=== PATIENT | male | born 1990 | race Native Hawaiian/Other Pacific Islander ===

== ENCOUNTER 2016-11-27 12:13 | Emergency (ER) | payer SELFPAY ==
[~2016-11-27] VITALS: Ht 177.8 cm; Wt 100.0 kg
[~2016-11-27 12:13] MED LIST: Z.0.NO CURRENT MEDS
[2016-11-27 12:14] VITALS: BP 172/92; PULSE 92; RESP 14; TEMP 98.8; O2SAT 97
--- NOTE | 2016-11-27 12:30 | PD ---
Physical Exam Time Seen by Provider: 12:29 Narrative 26 y/o male here with RLQ pain for 5 days. Burning type of pain. Denies n/v/d, fevers. Vital signs reviewed. Seen at triage desk. Awaiting bed placement. Data Data Last Documented VS Vital Signs Date Time Temp Pulse Resp B/P Pulse Ox O2 Delivery O2 Flow Rate FiO2 11/27/16 12:14 98.8 92 14 172/92 97 MDM Medical Record Reviewed: Yes Supervised Visit with HARDIK: No Akshat Silva Nov 27, 2016 12:30
[2016-11-27 14:03] LABS: AUTOMATED NEUTROPHIL # 3.8 TH/MM3 (1.8-7.7); BASOPHIL # 0.1 TH/MM3 (0-0.2); BASOPHIL % 1.1 % (0.0-2.0); EOSINOPHIL # 0.4 TH/MM3 (0-0.4); EOSINOPHIL % 5.2 % (0.0-4.0); HEMO FLAGS DIFF FINAL; LYMPH % 35.9 % (9.0-44.0); LYMPHOCYTE # 2.8 TH/MM3 (1.0-4.8); MEAN CELL VOLUME 90.1 FL (80.0-100.0); MEAN CORPUSCULAR HEMOGLOBIN 29.7 PG (27.0-34.0); MEAN CORPUSCULAR HGB CONC 32.9 % (32.0-36.0); MONO % 8.4 % (0.0-8.0); NEUT % 49.4 % (16.0-70.0); PLATELET COUNT 202 TH/MM3 (150-450); RED BLOOD COUNT 5.11 MIL/MM3 (4.50-5.90); WHITE BLOOD COUNT 7.7 TH/MM3 (4.0-11.0)
[2016-11-27 14:16] LABS: BLOOD, URINE NEG (NEG); GLUCOSE,URINE NEG (NEG); KETONE, URINE NEG (NEG); NITRITE,URINE NEG (NEG); PH, URINE 7.5 (5.0-8.5); URINE COLOR LIGHT-YELLOW (YELLW/STRAW)
[2016-11-27 14:18] LABS: COMMENT (UR) CULT NOT INDICATED; CULTURE IF INDICATED CULT NOT INDICATED
[2016-11-27 14:21] LABS: ALT (GPT) 31 U/L (12-78); ANION GAP 5 MEQ/L (5-15); AST (GOT) 21 U/L (15-37); BICARBONATE 30.5 MEQ/L (21.0-32.0); BLOOD UREA NITROGEN 10 MG/DL (7-18); CHLORIDE 105 MEQ/L (98-107); GLOMERULAR FILTRATION RATE 91 ML/MIN (>89); POTASSIUM 4.2 MEQ/L (3.5-5.1); SODIUM (NA) 140 MEQ/L (136-145)
[2016-11-27 14:23] LABS: ALKALINE PHOSPHATASE 71 U/L (45-117); TOTAL BILIRUBIN ADULT 0.4 MG/DL (0.2-1.0)
--- NOTE | 2016-11-27 15:28 | PD ---
HPI Chief Complaint: GI Complaint Time Seen by Provider: 15:28 Travel History International Travel<30 days: No Contact w/Intl Traveler<30days: No Traveled to known affect area: No History of Present Illness HPI 26 YO male presents to the ED for evaluation of 5 day history RLQ abdominal pain. Onset at rest. Described as sudden and sharp 8/10 initially with "hot, burning pain" of 6/10 minimally. Radiates to the right flank. No alleviating or exacerbating factors reported. Patient denies fever, chills, decreased appetite, nausea, vomiting, changes in bowel habit, melena, hematochezia, dysuria, penile discharge. He can identify no acute injury. Patient states pain was worse today which prompted him to seek evaluation. Denies chronic health problems, takes no daily medications. NKDA. PFSH Social History Alcohol Use: Yes (OCCASIONAL) Tobacco Use: No Allergies-Medications (Allergen,Severity, Reaction): Coded Allergies: No Known Allergies (Verified , 11/27/16) Reported Meds & Prescriptions Reported Meds & Active Scripts Active No Active Prescriptions or Reported Medications Review of Systems Except as stated in HPI: all other systems reviewed are Neg Physical Exam Narrative GENERAL: Well-nourished, well-developed male in no acute distress. SKIN: Focused skin assessment warm/dry. HEAD: Normocephalic. EYES: No scleral icterus. No injection or drainage. NECK: Supple, trachea midline. No JVD or lymphadenopathy. CARDIOVASCULAR: Regular rate and rhythm without murmurs, gallops, or rubs. RESPIRATORY: Breath sounds equal bilaterally. No accessory muscle use. GASTROINTESTINAL: Abdomen soft, nondistended. Tender to deep palpation of the lateral RLQ. Active bowel sounds. MUSCULOSKELETAL: No cyanosis, or edema. BACK: Nontender without obvious deformity. No CVA tenderness. Data Data Last Documented VS Vital Signs Date Time Temp Pulse Resp B/P Pulse Ox O2 Delivery O2 Flow Rate FiO2 11/27/16 16:57 70 22 127/60 100 Room Air 11/27/16 12:14 98.8 Orders Complete Blood Count With Diff (11/27/16 12:31) Comprehensive Metabolic Panel (11/27/16 12:31) Lipase (11/27/16 12:31) Urinalysis - C+S If Indicated (11/27/16 12:31) ^ Insert Iv (11/27/16 15:45) Ct Abd/Pel W Iv Contrast(Rout) (11/27/16 ) Morphine Inj (Morphine Inj) (11/27/16 16:00) Iohexol 350 Inj (Omnipaque 350 Inj) (11/27/16 16:46) Labs Laboratory Tests Test 11/27/16 11/27/16 13:47 13:55 White Blood Count 7.7 TH/MM3 Red Blood Count 5.11 MIL/MM3 Hemoglobin 15.1 GM/DL Hematocrit 46.0 % Mean Corpuscular Volume 90.1 FL Mean Corpuscular Hemoglobin 29.7 PG Mean Corpuscular Hemoglobin 32.9 % Concent Red Cell Distribution Width 13.0 % Platelet Count 202 TH/MM3 Mean Platelet Volume 9.6 FL Neutrophils (%) (Auto) 49.4 % Lymphocytes (%) (Auto) 35.9 % Monocytes (%) (Auto) 8.4 % Eosinophils (%) (Auto) 5.2 % Basophils (%) (Auto) 1.1 % Neutrophils # (Auto) 3.8 TH/MM3 Lymphocytes # (Auto) 2.8 TH/MM3 Monocytes # (Auto) 0.6 TH/MM3 Eosinophils # (Auto) 0.4 TH/MM3 Basophils # (Auto) 0.1 TH/MM3 CBC Comment DIFF FINAL Differential Comment Sodium Level 140 MEQ/L Potassium Level 4.2 MEQ/L Chloride Level 105 MEQ/L Carbon Dioxide Level 30.5 MEQ/L Anion Gap 5 MEQ/L Blood Urea Nitrogen 10 MG/DL Creatinine 0.98 MG/DL Estimat Glomerular Filtration 91 ML/MIN Rate Random Glucose 87 MG/DL Calcium Level 9.6 MG/DL Total Bilirubin 0.4 MG/DL Aspartate Amino Transf 21 U/L (AST/SGOT) Alanine Aminotransferase 31 U/L (ALT/SGPT) Alkaline Phosphatase 71 U/L Total Protein 8.3 GM/DL Albumin 4.4 GM/DL Lipase 112 U/L Urine Color LIGHT-YELLOW Urine Turbidity CLEAR Urine pH 7.5 Urine Specific Kyle 1.007 Urine Protein NEG mg/dL Urine Glucose (UA) NEG mg/dL Urine Ketones NEG mg/dL Urine Occult Blood NEG Urine Nitrite NEG Urine Bilirubin NEG Urine Urobilinogen LESS THAN 2.0 MG/DL Urine Leukocyte Esterase NEG Urine WBC LESS THAN 1 /hpf Microscopic Urinalysis Comment CULT NOT INDICATED MDM Medical Decision Making Medical Screen Exam Complete: Yes Emergency Medical Condition: Yes Differential Diagnosis appendicitis versus nephroureterolithiasis versus perforated viscous versus musculoskeletal pain versus other Narrative Course 26 YO male presents to the ED for evaluation of 5 day history RLQ abdominal pain. Onset at rest. Described as sudden and sharp 8/10 initially with "hot, burning pain" of 6/10 minimally. Radiates to the right flank. No alleviating or exacerbating factors reported. Patient denies fever, chills, decreased appetite, nausea, vomiting, changes in bowel habit, melena, hematochezia, dysuria, penile discharge, acute injury to the area. Worsened pain today caused him to seek evaluation. She is afebrile on presentation. Physical exam reveals a nontoxic-appearing male in no acute distress. There is tenderness to deep palpation in the very lateral right lower quadrant. Physical exam is otherwise unremarkable. He was administered 4mg morphine IV. CBC: WBC 7.7. Hemoglobin 15.1. CMP: Unremarkable. UA: No culture indicated. CT: Negative per radiology read. Discussed the results of the workup with the patient. He does report improvement of his symptoms but states that the "dull ache" is still present. He was relieved by the negative workup. We discussed possible musculoskeletal etiology of his abdominal pain. I suggested symptomatic treatment for the next few days. The patient is instructed to return to normal, gentle activities as tolerated, follow-up with [facility] as discussed, return for worsening of symptoms. He indicated understanding of the instructions and is agreeable to the care plan. He is stable and discharged home. Diagnosis Primary Impression: Right lower quadrant abdominal pain of unknown etiology Referrals: Primary Care Physician Patient Instructions: Abdominal Pain (ED), General Instructions Additional Instructions: Rest, hydrate. Ice a few times per day 15 minutes at a time. Ibuprofen (600 mg three times per day) as needed. Return to normal, gentle activity as tolerated. Follow up with the primary care provider for further evaluation. [facility] info is provided in this packet. Return to the ED for worsening symptoms or any urgent or emergent medical condition. Scripts No Active Prescriptions or Reported Meds Disposition: 01 DISCHARGE HOME Condition: Stable Kathleen Guerrero Nov 27, 2016 15:28
[2016-11-27 15:37] VITALS: BP 158/84; PULSE 78; RESP 16; O2SAT 97
[2016-11-27] MEDS ORDERED: MORPHINE SULFATE 4 MG/ML INJ IV PUSH ONE (16:00)
[2016-11-27] MEDS ORDERED: IOHEXOL 350 MG/ML 10 ML VIAL (for RAD DIAG) IV ONE (16:46)
[2016-11-27 16:57] VITALS: BP 127/60; PULSE 70; RESP 22; O2SAT 100
--- NOTE | 2016-11-27 17:03 | RADRPT ---
EXAM DATE/TIME: 11/27/2016 16:40 [facility] COMPARISON: No previous studies available for comparison. INDICATIONS : Right lower qaudrant pain. IV CONTRAST: 90 cc Omnipaque 350 (iohexol) IV ORAL CONTRAST: No oral contrast ingested. RADIATION DOSE: 15.36 CTDIvol (mGy) MEDICAL HISTORY : None SURGICAL HISTORY : None. ENCOUNTER: Initial ACUITY: 1 day PAIN SCALE: 7/10 LOCATION: Right lower quadrant TECHNIQUE: Volumetric scanning of the abdomen and pelvis was performed. Using automated exposure control and ad justment of the mA and/or kV according to patient size, radiation dose was kept as low as reasonably achievable to obtain optimal diagnostic quality images. FINDINGS: LOWER LUNGS: The visualized lower lungs are clear. LIVER: Homogeneous density without lesion. There is no dilation of the biliary tree. No calcified gallston es. SPLEEN: Normal size without lesion. PANCREAS: Within normal limits. KIDNEYS: Normal in size and shape. There is no mass, stone or hydronephrosis. ADRENAL GLANDS: Within normal limits. VASCULAR: There is no aortic aneurysm. BOWEL/MESENTERY: The stomach, small bowel, and colon demonstrate no acute abnormality. There is no free intraperitone al air or fluid. ABDOMINAL WALL: Within normal limits. RETROPERITONEUM: There is no lymphadenopathy. BLADDER: No wall thickening or mass. REPRODUCTIVE: Within normal limits. INGUINAL: There is no lymphadenopathy or hernia. MUSCULOSKELETAL: Within normal limits for patient age. CONCLUSION: Normal examination. Jamil Gil Jr., MD on November 27, 2016 at 16:58 Board Certified Radiologist. This report was verified electronically.
== END 2016-11-27 18:12 | disposition home or self-care (01) ==
LOC: NEPD 12:13
DX: R10.31 Right lower quadrant pain (principal)
CPT/HCPCS: 74177; 80053; 81001; 83690; 85025; 96374; 99285; J2270; Q9967